=== PATIENT | female | born 1965 | race Caucasian/White ===

== ENCOUNTER → 2016-10-13 | Outpatient (CLI) | payer BC ==
[~2016-10-13] MED LIST: ALBINS/ INH; ALBUAER2 INH; HCTZ PO
== END | disposition home or self-care (01) ==
LOC: C.PAPS 08:01
PROVIDERS: ATTEND Obstetrics & Gynecology
DX: R87.612 Low grade squamous intraepithelial lesion on cytologic smear of cervix (LGSIL) (principal)

== ENCOUNTER → 2016-11-13 | Outpatient (CLI) | payer BC | END | disposition home or self-care (01) | LOC: C.PATHSPEC 14:13 | PROVIDERS: ATTEND Obstetrics & Gynecology | DX: R87.612 Low grade squamous intraepithelial lesion on cytologic smear of cervix (LGSIL) (principal) ==

== ENCOUNTER → 2017-06-10 | Outpatient (CLI) | payer BC ==
--- NOTE | 2017-06-10 17:48 | DIAGNOSTIC IMAGING REPORT ---
KUB CLINICAL HISTORY: 52 years-old Female presenting with bilateral kidney stones, yearly follow-up. TECHNIQUE: Single supine view of the abdomen was obtained. COMPARISON: 05/11/2016. FINDINGS: The presence of bowel gas and stool mildly degrades evaluation of the kidneys. Within this limitation, the previously noted calcification at the upper pole of the left kidney is not evident on the current radiograph. No calcifications along the courses of the ureters. Multiple pelvic phleboliths again noted in a similar distribution as on prior exam. Mild stool burden noted throughout the colon. No gross pneumoperitoneum. Osseous structures normal. IMPRESSION: 1. Previously noted left upper pole calculus is not evident on the current radiograph. If there is clinical need, noncontrast CT would better demonstrate nephrolithiasis. No current evidence of nephrolithiasis. Electronically signed by: Lobo Mccall M.D. 06/10/2017 5:46 PM Dictated Date/Time: 06/10/2017 5:44 PM
== END | disposition home or self-care (01) ==
LOC: C.RAD 16:53
PROVIDERS: ATTEND Nurse Practitioner Family
DX: N20.0 Calculus of kidney (principal)

== ENCOUNTER → 2017-06-22 | Outpatient (CLI) | payer BC | END | disposition home or self-care (01) | LOC: C.PAPS 10:00 | PROVIDERS: ATTEND Obstetrics & Gynecology | DX: Z01.419 Encounter for gynecological examination (general) (routine) without abnormal findings (principal); N87.0 Mild cervical dysplasia ==

== ENCOUNTER → 2017-11-25 | Outpatient (CLI) | payer OTHER ==
--- NOTE | 2017-11-26 15:10 | MAMMOGRAPHY REPORT ---
BILATERAL DIGITAL SCREENING MAMMOGRAM TOMOSYNTHESIS WITH CAD: 11/25/2017 CLINICAL HISTORY: Routine screening. Patient has no complaints. TECHNIQUE: Breast tomosynthesis in addition to standard 2D mammography was performed. Current study was also evaluated with a Computer Aided Detection (CAD) system. COMPARISON: Comparison is made to exams dated: 09/24/2016 mammogram, 09/18/2015 mammogram, 09/18/2015 ultrasound, 11/01/2013 mammogram, and 10/18/2013 mammogram - [facility]. BREAST COMPOSITION: There are scattered areas of fibroglandular density in both breasts. FINDINGS: No suspicious masses, calcifications, or areas of architectural distortion are noted in ei ther breast. There has been no significant interval change compared to prior exams. Scattered bilater al benign-appearing calcifications are not significantly changed. IMPRESSION: ACR BI-RADS CATEGORY 2: BENIGN There is no mammographic evidence of malignancy. A 1 year screening mammogram is recommended. The pa tient will receive written notification of the results. Approximately 10% of breast cancers are not detected with mammography. A negative mammographic report should not delay biopsy if a clinically suggestive mass is present. Eliane Orozco M.D. ah/:11/26/2017 07:25:42 [employer] Agent: Ashley KRAUSE(Ana)(M), [facility] letter sent: Normal 1/2 BI-RADS Code: ACR BI-RADS Category 2: Benign
== END ==
LOC: C.MAMM 17:21
PROVIDERS: ATTEND Family Medicine
DX: Z12.31 Encounter for screening mammogram for malignant neoplasm of breast (principal)

== ENCOUNTER → 2018-05-27 | Outpatient (CLI) | payer OTHER ==
--- NOTE | 2018-05-27 10:20 | DIAGNOSTIC IMAGING REPORT ---
R PELVIS UNI HIP 2_3 V CLINICAL HISTORY: 53 years-old Female presenting with RIGHT HIP PAIN. TECHNIQUE: Single frontal view the pelvis and frontal and frog-leg lateral views of the right hip were obtained. COMPARISON: None. FINDINGS: Sacroiliac joints, pubic symphysis, and hip joints congruent. Arcuate lines of the sacrum grossly intact. Pelvis intact. No acute fracture or malalignment. The right hip specifically does not demonstrate advanced degenerative change. Joint spaces preserved. Trace osteophytosis at the inferior aspect of the right femoral head. Trace osteophytosis at the inferior aspect of the left femoral head is also noted. No radiographic soft tissue abnormality. IMPRESSION: 1. No acute osseous injury of the pelvis or right hip. 2. Mild degenerative changes of the right hip. Electronically signed by: Lobo Mccall M.D. 05/27/2018 10:18 AM Dictated Date/Time: 05/27/2018 10:14 AM
== END | disposition home or self-care (01) ==
LOC: C.RDSM 09:30
PROVIDERS: ATTEND Orthopaedic Surgery
DX: M25.551 Pain in right hip (principal)